=== PATIENT | male | born 1945 ===

== ENCOUNTER 2017-08-05 04:04 | Emergency (ER) | payer OTHER ==
[2017-08-05] MEDS ORDERED: HYDROmorphONE/DILAUDID 1 MG/ML INJ IVP ONE (04:12)
[2017-08-05] MEDS ORDERED: NS 1,000 ML IV ONE (04:12)
[2017-08-05] MEDS ORDERED: ONDANSETRON 4 MG/2 ML VIAL IVP ONE (04:12)
[2017-08-05 04:19] VITALS: TEMP 97.7
--- NOTE | 2017-08-05 04:19 | EDPHY ---
H & P HPI/ROS: HPI CHIEF COMPLAINT: Right flank pain HISTORY OF PRESENT ILLNESS: Patient very pleasant 71-year-old male, history of prostate cancer, as well as kidney stones remotely, does not take any daily medications he presents emergency room at 4 o'clock in the morning with right flank pain. He states this woke him from sleep around 2 hr ago. The pain is located in his right CVA region he describes as an achy sensation. Rather severe. 8/10. He denies any vomiting or nausea. Denies chest pain or shortness of breath denies fever. Denies testicular pain or urinary symptoms. Pain stays in his right flank. He has had symptoms for approximately 2 hr ago, it woke him from sleep. Due to the pain being rather severe he came to the emergency room for evaluation. Past Medical History: Prostate cancer Past Surgical History: Prostate surgery Social History: Denies daily use of drugs alcohol tobacco products. Family History: Noncontributory ROS REVIEW OF SYSTEMS: A comprehensive 10 point review of systems is otherwise negative aside from elements mentioned in the history of present illness. Exam Constitutional appears well nontoxic triage nursing summary reviewed, vital signs reviewed, awake/alert. Eyes normal conjunctivae and sclera, EOMI, PERRLA. HENT normal inspection, atraumatic, moist mucus membranes, no epistaxis, neck supple/ no meningismus, no raccoon eyes. Respiratory clear to auscultation bilaterally, normal breath sounds, no respiratory distress, no wheezing. Cardiovascular rate normal, regular rhythm, no murmur, no edema, distal pulses normal. Gastrointestinal soft, non-tender, no rebound, no guarding, normal bowel sounds, no distension, no pulsatile mass. Genitourinary mild tender palpation right CV. Musculoskeletal no midline vertebral tenderness, full range of motion, no calf swelling, no tenderness of extremities, no meningismus, good pulses, neurovascularly intact. Skin pink, warm, & dry, no rash, skin atraumatic. Neurologic awake, alert and oriented x 3, AAOx3, moves all 4 extremities equally, motor intact, sensory intact, CN II-XII intact, normal cerebellar, normal vision, normal speech. Psychiatric normal mood/affect. Heme/Lymph/Immune no lymphadenopathy. Differential diagnosis includes but is not limited to and in no particular order : Bowel obstruction, appendicitis, gallbladder disease, diverticulitis, colitis , enteritis, perforated viscus, gastritis, GERD, esophagitis, urinary tract infection, pyelonephritis, kidney stones Medical Decision Making: Plan for this patient IV establishment with IV fluid bolus 1 L normal saline, IV Dilaudid 1 mg for pain control, IV Zofran 4 mg for nausea, check urinalysis, check basic blood work, CT scan abdomen pelvis without contrast for right flank pain. Re-evaluation: CT scan abdomen pelvis without contrast for right-sided flank pain called to me by Dr. Dino Portillo. Shows mild right-sided hydronephrosis with a 2 mm kidney stone in the posterior right side of the bladder. Otherwise unremarkable CT scan. Source: Patient Constitutional: Initial Vital Signs Temperature (C) 36.5 C 08/05/17 04:14 Heart Rate 61 08/05/17 04:14 Respiratory Rate 16 08/05/17 04:14 Blood Pressure 170/90 H 08/05/17 04:14 O2 Sat (%) 92 08/05/17 04:14 O2 Delivery Mode Room Air Allergies/Adverse Reactions: No Known Allergies Allergy (Unverified 08/05/17 04:17) Medical Decision Making - Data Points Laboratory Results: Laboratory Results 08/05/17 04:20 08/05/17 04:20 08/05/17 08/05/17 08/05/17 04:20 04:20 04:20 WBC 6.85 10^3/uL 10^3/uL (3.80-9.50) RBC 5.00 10^6/uL 10^6/uL (4.40-6.38) Hgb 15.2 g/dL g/dL (13.7-17.5) Hct 43.8 % % (40.0-51.0) MCV 87.6 fL fL (81.5-99.8) MCH 30.4 pg pg (27.9-34.1) MCHC 34.7 g/dL g/dL (32.4-36.7) RDW 12.5 % % (11.5-15.2) Plt Count 173 10^3/uL 10^3/uL (150-400) MPV 8.9 fL fL (8.7-11.7) Neut % (Auto) 46.9 % % (39.3-74.2) Lymph % (Auto) 39.7 % % (15.0-45.0) [place] % (Auto) 9.9 % % (4.5-13.0) Eos % (Auto) 2.2 % % (0.6-7.6) Baso % (Auto) 0.9 % % (0.3-1.7) Nucleat RBC Rel Count 0.0 % % (0.0-0.2) Absolute Neuts (auto) 3.21 10^3/uL 10^3/uL (1.70-6.50) Absolute Lymphs (auto) 2.72 10^3/uL 10^3/uL (1.00-3.00) Absolute Monos (auto) 0.68 10^3/uL 10^3/uL (0.30-0.80) Absolute Eos (auto) 0.15 10^3/uL 10^3/uL (0.03-0.40) Absolute Basos (auto) 0.06 10^3/uL 10^3/uL (0.02-0.10) Absolute Nucleated RBC 0.00 10^3/uL 10^3/uL (0-0.01) Immature Gran % 0.4 % % (0.0-1.1) Immature Gran # 0.03 10^3/uL 10^3/uL (0.00-0.10) PT 14.4 SEC SEC (12.0-15.0) INR 1.10 (0.83-1.16) APTT 30.0 SEC SEC (23.0-38.0) Sodium 142 mEq/L mEq/L (134-144) Potassium 4.3 mEq/L mEq/L (3.5-5.2) Chloride 108 mEq/L mEq/L (97-110) Carbon Dioxide 24 mEq/l mEq/l (22-31) Anion Gap 10 mEq/L mEq/L (8-16) BUN 23 mg/dL mg/dL (7-23) Creatinine 1.2 mg/dL mg/dL (0.7-1.3) Estimated GFR 60 Glucose 161 mg/dL H mg/dL (70-100) Calcium 8.9 mg/dL mg/dL (8.5-10.4) Total Bilirubin 0.5 mg/dL mg/dL (0.1-1.4) Conjugated Bilirubin 0.2 mg/dL mg/dL (0.0-0.5) Unconjugated Bilirubin 0.3 mg/dL mg/dL (0.0-1.1) AST 26 IU/L IU/L (17-59) ALT 33 IU/L IU/L (21-72) Alkaline Phosphatase 67 IU/L IU/L (38-126) Total Protein 6.7 g/dL g/dL (6.3-8.2) Albumin 3.8 g/dL g/dL (3.5-5.0) Lipase 252 IU/L IU/L (23-300) Medications Given: Discontinued Medications Hydromorphone HCl (Dilaudid) 1 mg IVP EDNOW ONE Stop: 08/05/17 04:13 Last Admin: 08/05/17 04:19 Dose: 1 mg Sodium Chloride (Ns) 1,000 mls @ 0 mls/hr IV EDNOW ONE; Wide Open PRN Reason: Protocol Stop: 08/05/17 04:13 Last Admin: 08/05/17 04:19 Dose: 1,000 mls Ondansetron HCl (Zofran) 4 mg IVP EDNOW ONE Stop: 08/05/17 04:13 Last Admin: 08/05/17 04:19 Dose: 4 mg Departure - Departure Disposition: Home, Routine, Self-Care Clinical Impression: Kidney stone on right side Condition: Good Instructions: Kidney Stones (ED) Additional Instructions: 1. Drink lots of fluids stay well-hydrated. 2. [place] for pain control. 3. The stone is visualized in her bladder you should pass this out over the next 24-72 hours. Referrals: NONE *PRIMARY CARE P,. [Primary Care Provider] - As per Instructions Leta Wilder MD [Medical Doctor] - As per Instructions
[2017-08-05 04:33] LABS: PLATELET COUNT 173 10^3/uL (150-400)
[2017-08-05 04:39] LABS: INR 1.1 (0.83-1.16); PROTIME(PATIENT) 14.4 SEC (12.0-15.0)
[2017-08-05 05:53] VITALS: BP 135/78; PULSE 60; RESP 16; O2SAT 94
== END 2017-08-05 05:52 | disposition home or self-care (01) ==
DX: N20.0 Calculus of kidney (principal); E86.9 Volume depletion, unspecified; Z85.46 Personal history of malignant neoplasm of prostate
CPT/HCPCS: 74176; 96374; 96375; 99285; J1170; J2405